=== PATIENT | male | born 1975 | race Caucasian/White ===

== ENCOUNTER 2017-08-16 07:49 | Emergency (ER) | payer OTHER ==
[~2017-08-16] VITALS: Ht 188 cm; Wt 106.6 kg
[~2017-08-16 07:49] MED LIST: ACIDOPHILLUS; ALBU90OI; ALBU90OI INH; ALBU90OI6 INH; ALBU90OI61 INH; AMIT25 PO; AMOCLA875 PO; AMOX500 PO; ASCO500 PO; AZIT250 PO; CEPH500 PO; CIPR250 PO; CIPR500; CIPR500 PO; CITA20 PO; CODGUAEL PO; CRUTCH2 USE; CRUTCH4 USE; CYCL10 PO; DIPH50 PO; DOC250 PO; DOCU100; FAMO20 PO; FLUO20; FLUT.05NI; FLUT44OIA; HYDACE5; HYDACE5 PO; HYDMOR4 PO; IBUP800 PO; KETO10 PO; KETO5OP BOTHEYES; LEVFLO500 PO; LORA10ER PO; METPRE4DP PO; MONT10T; MONT10T PO; OMEP40CA12 PO; OXYACE5T; OXYACE5T PO; OXYACE7.5T PO; PHENA100 PO; PRED20 PO; PROM25 PO; PROM6.25SY PO; PSEU120ER PO; RANI150; RANI150 PO; RXHYDACE PO; RXOXYACE PO; RXPROM25 PO; RXPROM25S PR; RXPROMSY PO; SERT50 PO; SINGULAIR; SULTRIDS PO; [UNRECOGNIZED DRUG - REMARK]; [UNRECOGNIZED DRUG - REMARK]; [UNRECOGNIZED DRUG - REMARK]
[2017-08-16 08:26] LABS: BASOPHILS ABSOLUTE AUTO 0.05 K/mm3 (0.00-0.23); BASOPHILS PERCENT AUTO 1 % (0-2); EOSINOPHILS ABSOLUTE AUTO 0.16 K/mm3 (0.00-0.68); EOSINOPHILS PERCENT AUTO 2 % (0-6); Hematocrit 45.7 % (37.0-53.0); Hemoglobin 15.6 g/dL (13.5-17.5); IMMATURE GRAN ABSOLUTE AUTO 0.04 K/mm3 (0.00-0.10); IMMATURE GRAN PERCENT AUTO 0 % (0-1); LYMPHOCYTES ABSOLUTE AUTO 3.48 K/mm3 (0.84-5.20); LYMPHOCYTES PERCENT AUTO 37 % (21-46); MONOCYTES PERCENT AUTO 10 % (4-13); Mean Corpuscular HGB 29.9 pg (26.0-34.0); Mean Corpuscular HGB Conc 34.1 g/dL (31.5-36.5); Mean Corpuscular Volume 88 fL (80-100); Mean Platelet Volume 9.8 fL (9.1-12.4); NEUTROPHILS PERCENT AUTO 51 % (41-73); Platelet Count 278 K/mm3 (150-400); RDW Coefficient Variation 12.6 % (11.7-14.2); RDW Standard Deviation 40.1 fL (35.1-46.3); Red Blood Cell Count 5.22 M/mm3 (4.30-5.90); White Blood Cell Count 9.33 K/mm3 (4.00-11.30)
[2017-08-16 08:30] LABS: Source, Urine Clean Catch
[2017-08-16 08:34] LABS: Bilirubin, Urine Neg (Neg); Blood, Urine Neg (Neg); Glucose Qualitative, Urine Neg (Neg); Ketones, Urine Neg (Neg); Leukocyte Esterase, Urine 2+ (Neg); Nitrite, Urine Neg (Neg); Protein, Urine 1+ (Neg); Urobilinogen, Urine 1+ (Normal)
[2017-08-16] MEDS ORDERED: Desyrel150 MG PO (08:34)
[2017-08-16 08:40] LABS: Appearance, Urine Hazy (Clear); Color, Urine Yellow (P-Yellow)
[2017-08-16 08:41] LABS: Mucus Light (0-Heavy)
[2017-08-16 08:42] LABS: Bacteria Not Seen /hpf; Red Blood Cells, Urine 0-2 /hpf (0-2); Squamous Epithelial Cells Few /hpf (Few)
[2017-08-16 08:45] LABS: Alanine Aminotransfer (ALT/SGP 38 U/L (12-78); Albumin, Blood 3.7 g/dL (3.4-5.0); Albumin/Globulin Ratio 0.9 (0.8-1.8); Alk Phos 70 U/L (50-136); Anion Gap 7 mmol/L (6-16); Aspartate Aminotrans (AST/SGOT 21 U/L (12-37); Bilirubin, Total 0.4 mg/dL (0.1-1.0); Blood Urea Nitrogen 11 mg/dL (8-24); Bun/Creatinine Ratio 9.9 (12.0-20.0); CO2, Blood 27 mmol/L (21-32); Calcium, Blood 8.7 mg/dL (8.5-10.1); Chloride, Blood 104 mmol/L (98-108); Creatinine, Blood 1.11 mg/dL (0.60-1.20); Globulin, Blood 4.3 g/dL (2.2-4.0); Glomerular Filtration Rate >60 (60-); Glucose, Blood 111 mg/dL (70-99); Potassium, Blood 3.9 mmol/L (3.5-5.5); Sodium, Blood 138 mmol/L (136-145)
[2017-08-16] MEDS ORDERED: SUCR1 PO (11:05)
[2018-04-07] MEDS ORDERED: SERT50 PO (12:46)
[2018-04-07] MEDS ORDERED: LISI5 (16:54)
[2018-04-07] MEDS ORDERED: Omeprazole20 M1 (16:55)
[2018-04-07] MEDS ORDERED: AMIT10 (16:55)
[2018-04-07] MEDS ORDERED: QUET25 PO (21:42)
== END 2017-08-16 11:17 | disposition home or self-care (01) ==
LOC: ER 07:49
PROVIDERS: Emergency Medicine
DX: R10.13 Epigastric pain (principal); J45.909 Unspecified asthma, uncomplicated
CPT/HCPCS: 36415; 74177; 80053; 81001; 83690; 85025; 87086; 96361; 96374; 96375; 99284; J1170; J2405; J3010; J7030; Q9967

== ENCOUNTER 2017-12-15 12:57 | Day surgery (SDC) | payer OTHER ==
[~2017-12-15] VITALS: Ht 188 cm; Wt 102.9 kg
[~2017-12-15 12:57] MED LIST changes: +Desyrel150 MG PO; +SUCR1 PO
== END 2017-12-15 15:42 | disposition home or self-care (01) ==
LOC: ORSCSDS 12:57
PROVIDERS: Internal Medicine Gastroenterology
PROC: 0DBK8ZX Excision of Ascending Colon, Via Natural or Artificial Opening Endoscopic, Diagnostic (ICD-10-PCS; principal; 2017-12-15 14:45)
DX: R10.84 Generalized abdominal pain (principal); D12.2 Benign neoplasm of ascending colon; J45.909 Unspecified asthma, uncomplicated; F41.1 Generalized anxiety disorder; Z87.891 Personal history of nicotine dependence; Z79.899 Other long term (current) drug therapy
CPT/HCPCS: 88305; J7120

== ENCOUNTER → 2024-02-20 | Outpatient (CLI) | payer OTHER ==
[~2024-02-20] MED LIST changes: +AMIT10; +LISI5; +Omeprazole20 M1; +QUET25 PO
== END ==
LOC: LAB SHORT 15:46 → LAB 15:46
DX: N39.0 Urinary tract infection, site not specified (principal)
CPT/HCPCS: 87077; 87086; 87186